=== PATIENT | male | born 1980 | race Caucasian/White ===

== ENCOUNTER 2017-03-14 14:14 | Inpatient (IN) ==
[2017-03-14] MEDS ORDERED: ALBUTEROL/IPRATROPIUM 3 ML NEB RESP TX STA (16:12)
[2017-03-14 17:26] LABS: Basophils % 0.2 % (0.0-0.8); Eosinophils # 0.1 10*3/uL (0.0-0.87); Eosinophils % 0.9 % (0.00-10.9); Hematocrit 44.3 VOL% (42.0-52.0); Hemoglobin 14.4 GM/DL (14.0-18.0); Immature Granulocytes % 0.4 %; Immature Granulocytes Absolute 0.05 #; Mean Corpuscular HGB Conc 32.5 GM/DL (32-36); Mean Corpuscular Hemoglobin 30 PG (27-34); Mean Corpuscular Volume 91.7 FL (87-102); Mean Platelet Volume 10.5 FL (9.6-12.0); Monocytes # 0.7 10*3/uL (0.11-0.8); Monocytes % 5.7 % (1.7-12.7); Neutrophils # 9.7 10*3/uL (1.4-7.4); Neutrophils % 76.8 % (38.7-73.9); Platelet Count 264 T/CUMM (130-400); Red Blood Count 4.83 MC/CUMM (3.8-5.5); Red Cell Distribution Width 13.4 % (9.3-17.3); White Blood Count 12.7 T/CUMM (4-12)
[2017-03-14 17:43] LABS: Alanine Aminotransferase 26 U/L (16-61); Albumin 3.7 G/DL (3.4-5.0); Alkaline Phosphatase 123 U/L (45-117); Aspartate Amino Transferase 23 U/L (0-37); Bilirubin,Total < 0.39 MG/DL (0.2-1.0); Blood Urea Nitrogen 8 MG/DL (7-18); Calcium 8.4 MG/DL (8.5-10.1); Glucose 97 MG/DL (74-106); Osmolality,Calculated 274.5 MOS/KG (273-304); Sodium 139 MMOL/L (136-145); Total Protein 9.2 G/DL (6.4-8.3)
[2017-03-14] MEDS ORDERED: ALBUTEROL 2.5 MG/3 ML NEB RESP TX PRN (19:59)
[2017-03-14] MEDS ORDERED: CEFEPIME 1,000 MG VIAL ONE (21:16)
[2017-03-14] MEDS ORDERED: SODIUM CHLORIDE 0.9% 100 ML IV ONE (21:16)
[2017-03-14] MEDS ORDERED: ALBUTEROL 2.5 MG/3 ML NEB RESP TX ONE (21:43)
[2017-03-14] MEDS: CEFEPIME 1,000 MG in SYRINGE 1 EACH IV SCH (21:50)
[2017-03-14] MEDS ORDERED: guaiFENesin 200 MG/10 ML UDCUP PO PRN (22:31)
[2017-03-14] MEDS ORDERED: INFLUENZA VIRUS VACCINE 0.5 ML SYRINGE IM ONE (23:33)
[2017-03-15] MEDS: HYDROcodone/HOMATROPINE 5 ML UDCUP PO PRN ×3 (02:02→16:54)
[2017-03-15 05:56] LABS: Basophils % 0.3 % (0.0-0.8); Eosinophils # 0.3 10*3/uL (0.0-0.87); Eosinophils % 3.4 % (0.00-10.9); Hematocrit 38.8 VOL% (42.0-52.0); Hemoglobin 12.6 GM/DL (14.0-18.0); Immature Granulocytes % 0.4 %; Immature Granulocytes Absolute 0.03 #; Lymphocytes # 2.5 10*3/uL (1.4-4.0); Lymphocytes % 33.5 % (21.2-54.2); Mean Corpuscular HGB Conc 32.5 GM/DL (32-36); Mean Corpuscular Hemoglobin 29 PG (27-34); Mean Corpuscular Volume 90.2 FL (87-102); Mean Platelet Volume 10.2 FL (9.6-12.0); Monocytes # 0.6 10*3/uL (0.11-0.8); Monocytes % 7.7 % (1.7-12.7); Neutrophils # 4.1 10*3/uL (1.4-7.4); Neutrophils % 54.7 % (38.7-73.9); Platelet Count 213 T/CUMM (130-400); Red Cell Distribution Width 13.3 % (9.3-17.3); White Blood Count 7.6 T/CUMM (4-12)
[2017-03-15 06:22] LABS: Calcium 8.4 MG/DL (8.5-10.1); Osmolality,Calculated 278.3 MOS/KG (273-304); Potassium 4.2 MMOL/L (3.5-5.1)
[2017-03-15] MEDS: CEFEPIME 1,000 MG in SYRINGE 1 EACH IV SCH (08:52)
[2017-03-15] MEDS ORDERED: [UNRECOGNIZED DRUG - OTHER] PO SCH (09:00)
[2017-03-15] MEDS: ALBUTEROL 2.5 MG/3 ML NEB RESP TX SCH ×2 (14:01→19:59)
[2017-03-15] MEDS: traMADol 50 MG TABLET PO PRN ×2 (17:07→23:12)
[2017-03-15] MEDS: PANTOPRAZOLE 40 MG TABLET PO SCH (19:27)
[2017-03-15] MEDS: methylPREDNISolone SOD SUC 40 MG/1 ML VIAL IV SCH (19:28)
[2017-03-15] MEDS: CEFEPIME 2,000 MG in SYRINGE 1 EACH IV SCH (19:33)
[2017-03-15] MEDS: TOBRAMYCIN IV SCH (19:42)
[2017-03-15] MEDS: SODIUM CHLORIDE 0.9% IV SCH (19:42)
[2017-03-15] MEDS: DORNASE ALFA 2.5 MG/2.5 ML VIAL RESP TX SCH (19:59)
[2017-03-15] MEDS: ONDANSETRON 4 MG/2 ML VIAL IV PRN (20:36)
[2017-03-16] MEDS: ALBUTEROL 2.5 MG/3 ML NEB RESP TX SCH ×4 (00:06→19:45)
[2017-03-16] MEDS: ONDANSETRON 4 MG/2 ML VIAL IV PRN (02:43)
[2017-03-16] MEDS: methylPREDNISolone SOD SUC 40 MG/1 ML VIAL IV SCH ×3 (02:43→18:12)
[2017-03-16] MEDS: CEFEPIME 2,000 MG in SYRINGE 1 EACH IV SCH ×3 (02:45→18:02)
[2017-03-16 05:19] LABS: Basophils % 0.2 % (0.0-0.8); Eosinophils % 0.2 % (0.00-10.9); Hematocrit 36.2 VOL% (42.0-52.0); Hemoglobin 12.2 GM/DL (14.0-18.0); Immature Granulocytes % 0.6 %; Immature Granulocytes Absolute 0.04 #; Lymphocytes # 0.9 10*3/uL (1.4-4.0); Mean Corpuscular HGB Conc 33.7 GM/DL (32-36); Mean Corpuscular Hemoglobin 30 PG (27-34); Mean Corpuscular Volume 88.7 FL (87-102); Mean Platelet Volume 10.3 FL (9.6-12.0); Monocytes # 0.2 10*3/uL (0.11-0.8); Monocytes % 2.5 % (1.7-12.7); Neutrophils # 5.3 10*3/uL (1.4-7.4); Neutrophils % 82.5 % (38.7-73.9); Platelet Count 221 T/CUMM (130-400); Red Blood Count 4.08 MC/CUMM (3.8-5.5); Red Cell Distribution Width 13.1 % (9.3-17.3); White Blood Count 6.4 T/CUMM (4-12)
[2017-03-16 05:49] LABS: Calcium 8.2 MG/DL (8.5-10.1); Osmolality,Calculated 274.1 MOS/KG (273-304); Potassium 4.6 MMOL/L (3.5-5.1)
[2017-03-16] MEDS: DORNASE ALFA 2.5 MG/2.5 ML VIAL RESP TX SCH ×2 (07:27→19:45)
[2017-03-16] MEDS: PANTOPRAZOLE 40 MG TABLET PO SCH (08:34)
[2017-03-16] MEDS: traMADol 50 MG TABLET PO PRN ×2 (08:35→20:58)
[2017-03-16] MEDS ORDERED: DEXTROSE 50% 25 GM/50 ML VIAL IV PRN (11:39)
[2017-03-16] MEDS ORDERED: GLUCAGON 1 MG VIAL IM PRN (11:39)
[2017-03-16] MEDS: DICLOFENAC 1% GEL 100 GM TUBE TOP SCH ×2 (16:47→21:00)
[2017-03-16] MEDS: INSULIN LISPRO 100 UNIT/ML SUBCUT SCH ×2 (18:01→20:59)
[2017-03-16] MEDS: SODIUM CHLORIDE 0.9% IV SCH (21:32)
[2017-03-16] MEDS: TOBRAMYCIN IV SCH (21:32)
[2017-03-17] MEDS: ALBUTEROL 2.5 MG/3 ML NEB RESP TX SCH ×4 (00:36→21:29)
[2017-03-17] MEDS: CEFEPIME 2,000 MG in SYRINGE 1 EACH IV SCH ×3 (02:55→17:59)
[2017-03-17] MEDS: methylPREDNISolone SOD SUC 40 MG/1 ML VIAL IV SCH ×4 (02:59→21:48)
[2017-03-17 06:30] LABS: Calcium 8.5 MG/DL (8.5-10.1); Osmolality,Calculated 278.7 MOS/KG (273-304); Potassium 4.4 MMOL/L (3.5-5.1)
[2017-03-17] MEDS: DORNASE ALFA 2.5 MG/2.5 ML VIAL RESP TX SCH ×2 (08:29→21:29)
[2017-03-17] MEDS: PANTOPRAZOLE 40 MG TABLET PO SCH (09:57)
[2017-03-17] MEDS: DICLOFENAC 1% GEL 100 GM TUBE TOP SCH ×3 (11:09→21:23)
[2017-03-17] MEDS: INSULIN LISPRO 100 UNIT/ML SUBCUT SCH ×4 (11:09→22:06)
[2017-03-17] MEDS: traMADol 50 MG TABLET PO PRN (21:21)
[2017-03-17] MEDS: SODIUM CHLORIDE 0.9% IV SCH (21:23)
[2017-03-17] MEDS: TOBRAMYCIN IV SCH (21:23)
[2017-03-17] MEDS: ONDANSETRON 4 MG/2 ML VIAL IV PRN (22:04)
[2017-03-18] MEDS: ALBUTEROL 2.5 MG/3 ML NEB RESP TX SCH ×2 (02:21→07:51)
[2017-03-18] MEDS: CEFEPIME 2,000 MG in SYRINGE 1 EACH IV SCH ×2 (03:08→09:00)
[2017-03-18] MEDS: traMADol 50 MG TABLET PO PRN (03:22)
[2017-03-18] MEDS: HYDROcodone/HOMATROPINE 5 ML UDCUP PO PRN (03:23)
[2017-03-18 04:48] LABS: Basophils % 0.2 % (0.0-0.8); Eosinophils % 0.1 % (0.00-10.9); Hematocrit 37.9 VOL% (42.0-52.0); Hemoglobin 12.5 GM/DL (14.0-18.0); Immature Granulocytes % 0.8 %; Immature Granulocytes Absolute 0.08 #; Lymphocytes # 1.4 10*3/uL (1.4-4.0); Lymphocytes % 12.9 % (21.2-54.2); Mean Corpuscular Hemoglobin 30 PG (27-34); Mean Platelet Volume 10.2 FL (9.6-12.0); Monocytes # 0.4 10*3/uL (0.11-0.8); Monocytes % 3.6 % (1.7-12.7); Neutrophils # 8.7 10*3/uL (1.4-7.4); Neutrophils % 82.4 % (38.7-73.9); Platelet Count 245 T/CUMM (130-400); Red Blood Count 4.21 MC/CUMM (3.8-5.5); Red Cell Distribution Width 13.3 % (9.3-17.3); White Blood Count 10.6 T/CUMM (4-12)
[2017-03-18 05:12] LABS: Calcium 8.6 MG/DL (8.5-10.1); Osmolality,Calculated 281.7 MOS/KG (273-304); Potassium 4.5 MMOL/L (3.5-5.1)
[2017-03-18] MEDS: DORNASE ALFA 2.5 MG/2.5 ML VIAL RESP TX SCH (07:51)
[2017-03-18] MEDS: INSULIN LISPRO 100 UNIT/ML SUBCUT SCH ×2 (08:39→13:47)
[2017-03-18] MEDS: DICLOFENAC 1% GEL 100 GM TUBE TOP SCH (08:57)
[2017-03-18] MEDS: PANTOPRAZOLE 40 MG TABLET PO SCH (08:57)
[2017-03-18] MEDS: methylPREDNISolone SOD SUC 40 MG/1 ML VIAL IV SCH (09:55)
[2017-03-18 12:30] VITALS: BP 120/62
[2017-03-18] MEDS: TOBRAMYCIN IV SCH (13:11)
[2017-03-18] MEDS: SODIUM CHLORIDE 0.9% IV SCH (13:11)
[2017-03-18] MEDS: ONDANSETRON 4 MG/2 ML VIAL IV PRN (13:15)
[2017-03-20 14:02] LABS: Procalcitonin, S < 0.10 ng/mL (<=0.15)
== END 2017-03-18 14:08 | disposition home or self-care (01) | DRG 193 ==
LOC: N.ED 14:14 → SUATTDRO 19:56 → N.EDINP 19:56 → N.TELEN 22:29
PROVIDERS: ADMIT Pediatrics; ATTEND Internal Medicine

== ENCOUNTER 2022-02-06 07:00 | Inpatient (IN) ==
[2022-02-06 08:26] LABS: Basophils # 0.1 10*3/uL (0.0-0.2); Basophils % 0.4 % (0.0-0.8); Eosinophils # 0.3 10*3/uL (0.0-0.87); Eosinophils % 2.1 % (0.00-10.9); Hemoglobin 12.1 GM/DL (14.0-18.0); Immature Granulocytes % 0.4 %; Immature Granulocytes Absolute 0.05 #; Lymphocytes # 1.2 10*3/uL (1.4-4.0); Lymphocytes % 9.7 % (21.2-54.2); Mean Corpuscular HGB Conc 33.6 GM/DL (32-36); Mean Corpuscular Volume 91.6 FL (87-102); Mean Platelet Volume 10.2 FL (9.6-12.0); Monocytes # 0.8 10*3/uL (0.11-0.8); Monocytes % 6.3 % (1.7-12.7); Neutrophils % 81.1 % (38.7-73.9); Platelet Count 216 T/CUMM (130-400); Red Blood Count 3.93 MC/CUMM (3.8-5.5); Red Cell Distribution Width 13.6 % (9.3-17.3); White Blood Count 12.3 T/CUMM (4-12)
[2022-02-06] MEDS ORDERED: LEVOFLOXACIN INJ 750 MG in PREMIX 1 EACH IV STA (08:29)
[2022-02-06] MEDS ORDERED: ONDANSETRON 4 MG/2 ML VIAL IV STA (08:33)
[2022-02-06] MEDS ORDERED: MORPHINE 2 MG/1 ML SYRINGE IV STA (08:34)
[2022-02-06 08:50] LABS: Albumin 2.9 G/DL (3.4-5.0); Bilirubin,Total 0.6 MG/DL (0.20-1.00); Calcium 9.4 MG/DL (8.5-10.1); Osmolality,Calculated 275.7 MOS/KG (273-304); Potassium 3.6 MMOL/L (3.5-5.1); Total Protein 7.8 G/DL (6.4-8.2)
[2022-02-06] MEDS ORDERED: ACETAMINOPHEN 325 MG TABLET PO PRN (10:02)
[2022-02-06] MEDS: MEROPENEM 500 MG in SODIUM CHLORIDE 0.9% 100 ML IV SCH ×3 (11:01→20:33)
[2022-02-06] MEDS: ENOXAPARIN 40 MG/0.4 ML SYRINGE SUBCUT SCH (11:01)
[2022-02-06] MEDS: SODIUM CHLORIDE 0.9% IV SCH (14:20)
[2022-02-06] MEDS: TOBRAMYCIN IV SCH (14:20)
[2022-02-06] MEDS: ONDANSETRON 4 MG/2 ML VIAL IV PRN (18:24)
[2022-02-06] MEDS: MORPHINE 2 MG/1 ML SYRINGE IV PRN ×2 (18:25→22:57)
[2022-02-06] MEDS ORDERED: ALBUTEROL 2.5 MG/3 ML NEB RESP TX PRN (19:00)
[2022-02-06] MEDS: ALBUTEROL 2.5 MG/3 ML NEB RESP TX SCH (19:25)
[2022-02-07] MEDS: ALBUTEROL 2.5 MG/3 ML NEB RESP TX SCH ×4 (01:00→19:48)
[2022-02-07] MEDS: MEROPENEM 500 MG in SODIUM CHLORIDE 0.9% 100 ML IV SCH ×4 (04:10→20:27)
[2022-02-07] MEDS: MORPHINE 2 MG/1 ML SYRINGE IV PRN ×3 (04:28→20:27)
[2022-02-07 05:22] LABS: Basophils % 0.5 % (0.0-0.8); Eosinophils # 0.2 10*3/uL (0.0-0.87); Eosinophils % 2.2 % (0.00-10.9); Hematocrit 35.1 VOL% (42.0-52.0); Hemoglobin 11.1 GM/DL (14.0-18.0); Immature Granulocytes % 0.6 %; Immature Granulocytes Absolute 0.05 #; Lymphocytes % 12.9 % (21.2-54.2); Mean Corpuscular HGB Conc 31.6 GM/DL (32-36); Mean Corpuscular Volume 95.9 FL (87-102); Mean Platelet Volume 10.5 FL (9.6-12.0); Monocytes # 0.7 10*3/uL (0.11-0.8); Neutrophils % 75.8 % (38.7-73.9); Platelet Count 198 T/CUMM (130-400); Red Blood Count 3.66 MC/CUMM (3.8-5.5); Red Cell Distribution Width 13.8 % (9.3-17.3); White Blood Count 8.1 T/CUMM (4-12)
[2022-02-07 05:42] LABS: Albumin 2.6 G/DL (3.4-5.0); Bilirubin,Total 0.6 MG/DL (0.20-1.00); Calcium 8.6 MG/DL (8.5-10.1); Osmolality,Calculated 281.3 MOS/KG (273-304); Potassium 4.1 MMOL/L (3.5-5.1); Total Protein 7.3 G/DL (6.4-8.2)
[2022-02-07] MEDS: MULTIVITAMIN (CENTRUM) TABLET PO SCH (08:59)
[2022-02-07] MEDS: ZINC GLUCONATE 50 MG TABLET PO SCH (08:59)
[2022-02-07] MEDS: PANTOPRAZOLE 40 MG TABLET PO SCH (09:00)
[2022-02-07] MEDS: ENOXAPARIN 40 MG/0.4 ML SYRINGE SUBCUT SCH (09:00)
[2022-02-07] MEDS: ELEXACAFTOR PO SCH (09:01)
[2022-02-07] MEDS: IVACAFTOR PO SCH (09:01)
[2022-02-07] MEDS: TEZACAFTOR PO SCH (09:01)
[2022-02-07] MEDS: methylPREDNISolone SOD SUC 40 MG/1 ML VIAL IV SCH ×2 (10:02→16:33)
[2022-02-07] MEDS: ONDANSETRON 4 MG/2 ML VIAL IV PRN ×2 (10:02→20:27)
[2022-02-07] MEDS: TOBRAMYCIN IV SCH (15:15)
[2022-02-07] MEDS: SODIUM CHLORIDE 0.9% IV SCH (15:15)
[2022-02-08] MEDS: ALBUTEROL 2.5 MG/3 ML NEB RESP TX SCH ×4 (00:42→19:36)
[2022-02-08] MEDS: MEROPENEM 500 MG in SODIUM CHLORIDE 0.9% 100 ML IV SCH ×4 (02:18→21:00)
[2022-02-08] MEDS: methylPREDNISolone SOD SUC 40 MG/1 ML VIAL IV SCH ×3 (02:18→16:48)
[2022-02-08] MEDS: MORPHINE 2 MG/1 ML SYRINGE IV PRN ×3 (03:25→21:32)
[2022-02-08] MEDS: ONDANSETRON 4 MG/2 ML VIAL IV PRN ×3 (03:29→21:30)
[2022-02-08 05:40] LABS: Basophils % 0.1 % (0.0-0.8); Hematocrit 33.4 VOL% (42.0-52.0); Hemoglobin 10.9 GM/DL (14.0-18.0); Immature Granulocytes % 0.9 %; Immature Granulocytes Absolute 0.11 #; Lymphocytes # 0.5 10*3/uL (1.4-4.0); Mean Corpuscular HGB Conc 32.6 GM/DL (32-36); Mean Corpuscular Volume 94.1 FL (87-102); Mean Platelet Volume 10.8 FL (9.6-12.0); Monocytes # 0.4 10*3/uL (0.11-0.8); Monocytes % 2.9 % (1.7-12.7); Neutrophils % 92.1 % (38.7-73.9); Platelet Count 216 T/CUMM (130-400); Red Blood Count 3.55 MC/CUMM (3.8-5.5); Red Cell Distribution Width 13.7 % (9.3-17.3); White Blood Count 12.2 T/CUMM (4-12)
[2022-02-08 05:57] LABS: Calcium 9.5 MG/DL (8.5-10.1); Osmolality,Calculated 285.5 MOS/KG (273-304); Potassium 4.4 MMOL/L (3.5-5.1)
[2022-02-08 06:09] LABS: Lymphocytes 2 % (20-55); Platelet Estimate Adequate; Total Cells Counted 100
[2022-02-08] MEDS: PANTOPRAZOLE 40 MG TABLET PO SCH (08:24)
[2022-02-08] MEDS: MULTIVITAMIN (CENTRUM) TABLET PO SCH (08:24)
[2022-02-08] MEDS: ELEXACAFTOR PO SCH (08:25)
[2022-02-08] MEDS: IVACAFTOR PO SCH (08:25)
[2022-02-08] MEDS: TEZACAFTOR PO SCH (08:25)
[2022-02-08] MEDS: ENOXAPARIN 40 MG/0.4 ML SYRINGE SUBCUT SCH (08:25)
[2022-02-08] MEDS: ZINC GLUCONATE 50 MG TABLET PO SCH (08:26)
[2022-02-08] MEDS: SODIUM CHLORIDE 0.9% IV SCH (14:20)
[2022-02-08] MEDS: TOBRAMYCIN IV SCH (14:20)
[2022-02-09] MEDS: ALBUTEROL 2.5 MG/3 ML NEB RESP TX SCH ×4 (00:49→20:44)
[2022-02-09] MEDS: MEROPENEM 500 MG in SODIUM CHLORIDE 0.9% 100 ML IV SCH ×4 (02:01→20:24)
[2022-02-09] MEDS: methylPREDNISolone SOD SUC 40 MG/1 ML VIAL IV SCH ×3 (02:01→17:14)
[2022-02-09] MEDS: MULTIVITAMIN (CENTRUM) TABLET PO SCH (09:58)
[2022-02-09] MEDS: ZINC GLUCONATE 50 MG TABLET PO SCH (09:58)
[2022-02-09] MEDS: PANTOPRAZOLE 40 MG TABLET PO SCH (09:58)
[2022-02-09] MEDS: ENOXAPARIN 40 MG/0.4 ML SYRINGE SUBCUT SCH (09:58)
[2022-02-09] MEDS: ELEXACAFTOR PO SCH (09:58)
[2022-02-09] MEDS: TEZACAFTOR PO SCH (09:58)
[2022-02-09] MEDS: IVACAFTOR PO SCH (09:58)
[2022-02-09] MEDS: SODIUM CHLORIDE 0.9% IV SCH (15:40)
[2022-02-09] MEDS: TOBRAMYCIN IV SCH (15:40)
[2022-02-09] MEDS: ONDANSETRON 4 MG/2 ML VIAL IV PRN (15:58)
[2022-02-09] MEDS: MORPHINE 2 MG/1 ML SYRINGE IV PRN (15:58)
[2022-02-10] MEDS: ALBUTEROL 2.5 MG/3 ML NEB RESP TX SCH ×4 (00:35→19:52)
[2022-02-10] MEDS: MEROPENEM 500 MG in SODIUM CHLORIDE 0.9% 100 ML IV SCH ×4 (02:00→22:06)
[2022-02-10] MEDS: methylPREDNISolone SOD SUC 40 MG/1 ML VIAL IV SCH ×3 (02:00→17:50)
[2022-02-10 04:50] LABS: Basophils # 0.1 10*3/uL (0.0-0.2); Basophils % 0.4 % (0.0-0.8); Hematocrit 33.9 VOL% (42.0-52.0); Hemoglobin 10.9 GM/DL (14.0-18.0); Immature Granulocytes % 4.6 %; Immature Granulocytes Absolute 0.77 #; Lymphocytes % 6.1 % (21.2-54.2); Mean Corpuscular HGB Conc 32.2 GM/DL (32-36); Mean Corpuscular Volume 95.8 FL (87-102); Monocytes # 0.6 10*3/uL (0.11-0.8); Monocytes % 3.6 % (1.7-12.7); Neutrophils % 85.3 % (38.7-73.9); Platelet Count 271 T/CUMM (130-400); Red Blood Count 3.54 MC/CUMM (3.8-5.5); Red Cell Distribution Width 13.6 % (9.3-17.3); White Blood Count 16.8 T/CUMM (4-12)
[2022-02-10 05:04] LABS: Calcium 9.2 MG/DL (8.5-10.1); Osmolality,Calculated 285.7 MOS/KG (273-304); Potassium 4.8 MMOL/L (3.5-5.1)
[2022-02-10 06:24] LABS: Hypochromia Slight; Lymphocytes 9 % (20-55); Microcytosis Slight; Platelet Estimate Adequate; Total Cells Counted 100
[2022-02-10] MEDS: ZINC GLUCONATE 50 MG TABLET PO SCH (10:58)
[2022-02-10] MEDS: PANTOPRAZOLE 40 MG TABLET PO SCH (10:58)
[2022-02-10] MEDS: ENOXAPARIN 40 MG/0.4 ML SYRINGE SUBCUT SCH (10:58)
[2022-02-10] MEDS: MULTIVITAMIN (CENTRUM) TABLET PO SCH (10:58)
[2022-02-10] MEDS: ELEXACAFTOR PO SCH (10:59)
[2022-02-10] MEDS: TEZACAFTOR PO SCH (10:59)
[2022-02-10] MEDS: IVACAFTOR PO SCH (10:59)
[2022-02-10] MEDS: TOBRAMYCIN IV SCH (13:24)
[2022-02-10] MEDS: SODIUM CHLORIDE 0.9% IV SCH (13:24)
[2022-02-10] MEDS: MORPHINE 2 MG/1 ML SYRINGE IV PRN (17:55)
[2022-02-10] MEDS: ONDANSETRON 4 MG/2 ML VIAL IV PRN (17:56)
[2022-02-11] MEDS: ALBUTEROL 2.5 MG/3 ML NEB RESP TX SCH ×4 (00:24→19:40)
[2022-02-11] MEDS: methylPREDNISolone SOD SUC 40 MG/1 ML VIAL IV SCH ×3 (00:41→16:42)
[2022-02-11] MEDS: MEROPENEM 500 MG in SODIUM CHLORIDE 0.9% 100 ML IV SCH ×4 (03:34→20:53)
[2022-02-11] MEDS: MORPHINE 2 MG/1 ML SYRINGE IV PRN ×2 (10:25→21:39)
[2022-02-11] MEDS: ONDANSETRON 4 MG/2 ML VIAL IV PRN ×2 (10:26→21:44)
[2022-02-11] MEDS: ENOXAPARIN 40 MG/0.4 ML SYRINGE SUBCUT SCH (10:33)
[2022-02-11] MEDS: PANTOPRAZOLE 40 MG TABLET PO SCH (10:34)
[2022-02-11] MEDS: IVACAFTOR PO SCH (10:34)
[2022-02-11] MEDS: MULTIVITAMIN (CENTRUM) TABLET PO SCH (10:34)
[2022-02-11] MEDS: ELEXACAFTOR PO SCH (10:34)
[2022-02-11] MEDS: TEZACAFTOR PO SCH (10:34)
[2022-02-11] MEDS: ZINC GLUCONATE 50 MG TABLET PO SCH (10:35)
[2022-02-11] MEDS: TOBRAMYCIN IV SCH (15:08)
[2022-02-11] MEDS: SODIUM CHLORIDE 0.9% IV SCH (15:08)
[2022-02-12] MEDS: ALBUTEROL 2.5 MG/3 ML NEB RESP TX SCH ×2 (01:35→07:49)
[2022-02-12] MEDS: methylPREDNISolone SOD SUC 40 MG/1 ML VIAL IV SCH ×2 (02:08→08:54)
[2022-02-12] MEDS: MEROPENEM 500 MG in SODIUM CHLORIDE 0.9% 100 ML IV SCH ×2 (02:08→08:54)
[2022-02-12] MEDS: MORPHINE 2 MG/1 ML SYRINGE IV PRN (02:16)
[2022-02-12] MEDS: ONDANSETRON 4 MG/2 ML VIAL IV PRN (02:18)
[2022-02-12] MEDS: PANTOPRAZOLE 40 MG TABLET PO SCH (08:52)
[2022-02-12] MEDS: ENOXAPARIN 40 MG/0.4 ML SYRINGE SUBCUT SCH (08:53)
[2022-02-12] MEDS: MULTIVITAMIN (CENTRUM) TABLET PO SCH (08:53)
[2022-02-12] MEDS: ZINC GLUCONATE 50 MG TABLET PO SCH (08:53)
[2022-02-12] MEDS: ELEXACAFTOR PO SCH (08:54)
[2022-02-12] MEDS: TEZACAFTOR PO SCH (08:54)
[2022-02-12] MEDS: IVACAFTOR PO SCH (08:54)
[2022-02-12 12:36] VITALS: BP 128/82
[2022-02-13] MEDS ORDERED: LEVOFLOXACIN 750 MG TABLET PO SCH (09:00)
== END 2022-02-12 14:02 | disposition home or self-care (01) | DRG 177 ==
LOC: N.ED 07:00 → N.EDINP 10:02 → SUATTDRO 10:02 → N.EDINP 15:17 → N.5E 15:31
PROVIDERS: ADMIT Internal Medicine; ATTEND Internal Medicine